=== PATIENT | female | born 2000 | race Two or more races ===

== ENCOUNTER 2022-02-08 20:16 | Emergency (ER) | payer MEDICAID, OTHER ==
[~2022-02-08] VITALS: Ht 160 cm; Wt 113.5 kg
[2022-02-08 20:48] VITALS: BP 128/79
[2022-02-08 21:35] LABS: Eosinophils # (auto) 0.1 10 ^3/uL (0-0.8); Lymphocytes # (auto) 4.1 10 ^3/uL (0.4-5.4)
[2022-02-08 21:37] LABS: Basophils # (auto) 0 10 ^3/uL (0-0.2); Basophils % (auto) 0.2 % (0.0-2.0); Eosinophils % (auto) 0.8 % (0.0-7.0); Hematocrit 44.3 % (36.0-46.0); Hemoglobin 14.1 g/dL (12.2-16.2); Lymphocytes % (auto) 35.6 % (10.0-50.0); Mean Corpuscular Hemoglobin 25.3 pg (28.0-32.0); Mean Corpuscular Volume 79.1 fL (80.0-100.0); Monocytes # (auto) 0.8 10 ^3/uL (0-1.3); Monocytes % (auto) 7.3 % (0.0-12.0); Neutrophils # (auto) 6.5 10 ^3/uL (1.6-8.6); Neutrophils % (auto) 56.1 % (37.0-80.0); Nucleated Red Blood Cells % 1.2 %; Red Cell Distribution Width 13.3 % (11.8-14.3); White Blood Cell 11.6 10^3/uL (4.4-10.8)
[2022-02-08 21:55] LABS: BUN/Creatinine Ratio 16.2; Calcium 9.6 mg/dL (8.5-10.1); Potassium 3.7 mmol/L (3.5-5.1)
[2022-02-08 21:59] LABS: Bilirubin, Total 0.6 mg/dL (0.2-1.0); Total Protein 8.2 g/dL (6.4-8.2)
[2022-02-08 23:59] LABS: Urine Bacteria FEW /hpf (None Seen); Urine Blood 2+ /uL (Negative); Urine Mucus FEW (None Seen); Urine Specific Gravity 1.024 (1.001-1.035); Urine WBC 4 /hpf (0 - 5)
[2022-02-09 00:12] LABS: Amphetamine Screen, Urine NEGATIVE (NEGATIVE); Barbiturate Scree,Urine NEGATIVE (NEGATIVE); Benzodiazephine Screen, Urine NEGATIVE (NEGATIVE); Cannabinoid Screen, Urine NEGATIVE (NEGATIVE); Cocaine Screen, Urine NEGATIVE (NEGATIVE); Phencyclidine Screen, Urine NEGATIVE (NEGATIVE)
[2022-02-09 00:22] LABS: Opiate Scree,Urine NEGATIVE (NEGATIVE)
[2022-02-09] MEDS ORDERED: ASPirin 325 MG TAB PO ONE (08:30)
[2022-02-09] MEDS ORDERED: cefTRIAXone SOD 1,000 MG VL IM ONE (08:30)
== END 2022-02-09 15:40 | disposition left against medical advice (07) ==
LOC: ER 20:19
DX: R07.81 Pleurodynia (principal)
CPT/HCPCS: 36415; 71046; 80053; 80307; 81001; 83690; 84484; 84702; 85025; 85379; 93005